=== PATIENT | female | born 1960 | race Caucasian/White ===

== ENCOUNTER 2017-07-15 07:43 | Day surgery (SDC) | END 2017-07-15 12:10 | disposition home or self-care (01) ==

== ENCOUNTER 2017-07-16 08:49 | Emergency (ER) | END 2017-07-16 16:02 | disposition home or self-care (01) ==

== ENCOUNTER 2017-09-30 07:25 | Observation (INO) | END 2017-10-03 15:01 | disposition home or self-care (01) ==

== ENCOUNTER 2017-10-07 14:22 | Outpatient (CLI) | END 2017-10-10 14:08 | disposition home or self-care (01) ==

== ENCOUNTER 2018-08-11 06:15 | Inpatient (IN) | payer OTHER ==
[~2018-08-11] VITALS: Ht 167.6 cm; Wt 98.0 kg
[2018-08-11] VITALS (29 sets, daily range): BP systolic 117–149; BP diastolic 64–92; PULSE 68–104; RESP 14–19; Ht 167.6 cm; Wt 98.0 kg
[~2018-08-11 06:15] MED LIST: ACET-141 PO; ASPI-903 PO; ATOR10TA65 PO; CALC500T91 PO; CLZP100T PO; ESCI20TA38 PO; HYDR-3601 PO; INSU100I33 SC; LIRA0.6P2 SQ; LORA10TA3 PO; LOSA50TA14 PO; LURA40TA PO; MTF1000T PO; NAPR-683 PO; TEMA30CA PO
[2018-08-11] MEDS ORDERED: CALC-74 PO (06:42)
[2018-08-11] MEDS ORDERED: ACET-141 PO (06:43)
[2018-08-11] MEDS ORDERED: ATOR10TA65 PO (06:44)
[2018-08-11] MEDS ORDERED: ASPI81TA52 PO (06:44)
[2018-08-11] MEDS ORDERED: CLZP100T PO (06:46)
[2018-08-11] MEDS ORDERED: INSU100I33 SC (06:47)
[2018-08-11] MEDS ORDERED: ESCI20TA PO (06:47)
[2018-08-11] MEDS ORDERED: LIRA0.6P2 SQ (06:48)
[2018-08-11] MEDS ORDERED: LORA10TA3 PO (06:49)
[2018-08-11] MEDS ORDERED: LURA40TA PO (06:49)
[2018-08-11] MEDS ORDERED: LOSA50TA14 PO (06:49)
[2018-08-11] MEDS ORDERED: METF100010 PO (06:50)
[2018-08-11] MEDS ORDERED: TEMA30CA PO (06:51)
[2018-08-11] MEDS ORDERED: NAPR-683 PO (06:51)
[2018-08-11] MEDS ORDERED: LIDOCAINE 2% (SDV) 5 ML INJ ONE (07:00)
[2018-08-11] MEDS ORDERED: POLYMYXIN/BACITRACIN 1L IRRIG ONE (07:41)
[2018-08-11] MEDS ORDERED: BACITRACIN 50000 UNITS INJ ONE (07:41)
[2018-08-11] MEDS ORDERED: POLYMYXIN B 500000 UNIT INJ ONE (07:43)
--- NOTE | 2018-08-11 07:52 | PREAC ---
Date/Time of Note Date/Time of Note DATE: 08/11/18 TIME: 07:50 Anesthesia Eval and Record Evaluation Time Pre-Procedure Interview DATE: 08/11/18 TIME: 07:50 Age 58 Sex female NPO: 8 hrs Preoperative diagnosis left knee osteoarthritis Planned procedure left total knee replacement Past Medical History Past Medical History: Includes Cardio: HTN Endo: Diabetes Pulm: Smoking Hx Musculoskeletal: Osteoarthritis GI: Morbid obesity Psych: Other (schizophrenia) Surgery & Anesthesia Issues No known issue Meds Anticoagulation: No Beta Crystal within 24 hr: No Reason Beta Crystal not given: Pt. not on B-Crystal Reported Medications Temazepam* (Temazepam*) 30 Mg Capsule, 30 MG PO HS PRN for INSOMNIA, CAP 08/11/18 Naproxen* (Naproxen*) 250 Mg Tablet, 250 MG PO BID PRN for PAIN AND/OR INFLAMMATION, TAB 08/11/18 Metformin Hcl* (Metformin Hcl*) 1,000 Mg Tablet, 1000 MG PO WITH BREAKFAST DINNE , #60 TAB 08/11/18 Lurasidone Hcl (LATUDA) 40 Mg Tablet, 40 MG PO DAILY, #30 TAB 08/11/18 Losartan Potassium* (Losartan Potassium*) 50 Mg Tablet, 50 MG PO DAILY, TAB 08/11/18 Loratadine* (Loratadine*) 10 Mg Tablet, 10 MG PO DAILY, #30 TAB 08/11/18 Liraglutide (Victoza 3-Hang) 0.6 Mg/0.1 Ml Pen.injctr, 1.8 MG SQ DAILY, SYR 08/11/18 Insulin Glargine,Hum.rec.anlog (Basaglar Kwikpen U-100) 100 Unit/1 Ml Insul n.pen, 34 UNIT SC QAM, EA 08/11/18 Escitalopram Oxalate* (Lexapro*) 20 Mg Tablet, 20 MG PO DAILY, #30 TAB 08/11/18 Clozapine* (Clozaril*) 100 Mg Tab, 600 MG PO QHS, TAB 08/11/18 Atorvastatin Calcium (Atorvastatin Calcium) 10 Mg Tablet, 10 MG PO QHS, #30 TAB 08/11/18 Aspirin (Low Dose Aspirin) 81 Mg Tablet.dr, 81 MG PO DAILY, #30 TAB 08/11/18 Acetaminophen* (Acetaminophen*) 500 MG Extra Strength Tablet, 1000 MG PO TID PRN for PAIN AND OR ELEVATED TEMP, TAB 08/11/18 Calcium Carbonate-Vit D3-Minerals (Calcium 600 + D + Minerals) 1 Each Tablet, 1 TAB PO DAILY, TAB 08/11/18 Naproxen* (Naproxen*) 250 Mg Tablet, 250 MG PO BID PRN for PAIN, TAB 07/15/17 Discontinued Reported Medications Lurasidone Hcl (LATUDA) 40 Mg Tablet, 40 MG PO DAILY, #30 TAB 09/30/17 Temazepam* (Temazepam*) 30 Mg Capsule, 30 MG PO HS PRN for INSOMNIA, CAP 07/15/17 Escitalopram Oxalate* (Escitalopram Oxalate*) 20 Mg Tablet, 20 MG PO DAILY, #30 TAB 07/15/17 Clozapine* (Clozaril*) 100 Mg Tab, 600 MG PO QHS, TAB 07/15/17 Acetaminophen* (Acetaminophen*) 500 MG Extra Strength Tablet, 1000 MG PO Q8 PRN for PAIN AND OR ELEVATED TEMP, TAB 07/15/17 Metformin* (Glucophage*) 1,000 Mg Tablet, 1000 MG PO BID, #60 TAB 07/15/17 Losartan Potassium* (Losartan Potassium*) 50 Mg Tablet, 50 MG PO DAILY, TAB 07/15/17 Calcium Carbonate (Izon-Cux-955) 500 Mg Tablet, 500 MG PO AC MEALS, TAB 07/15/17 Atorvastatin Calcium (Atorvastatin Calcium) 10 Mg Tablet, 10 MG PO QHS, #30 TAB 07/15/17 Aspirin* (Aspirin* Chew) 81 Mg Tab.chew, 81 MG PO DAILY, TAB.CHEW 07/15/17 Liraglutide (Victoza 3-Hang) 0.6 Mg/0.1 Ml Pen.injctr, 1.8 MG SQ DAILY, SYR 07/15/17 Loratadine* (Loratadine*) 10 Mg Tablet, 10 MG PO DAILY, #30 TAB 07/15/17 Insulin Glargine,Hum.rec.anlog (Basaglar Kwikpen U-100) 100 Unit/1 Ml Insu ln.pen, 34 UNIT SC QAM, EA 07/15/17 Discontinued Scripts Hydrocodone Bit-Acetaminophen (Hydrocodone Bit-APAP) 5-325MG Tablet, 1 TAB PO Q4H PRN for PAIN LEVEL 4-7, #40 TAB Prov:TOY ESTRADA 10/03/17 Meds reviewed: Yes Allergies Coded Allergies: No Known Allergy (Unverified , 08/11/18) Allergies Reviewed: Yes Labs/Studies Labs Reviewed: Reviewed by anesthesiologist test: N/A Studies: ECG, CXR Pre-procedure Exam Last vitals Vital Signs Date Temp Pulse Resp B/P (MAP) Pulse Ox O2 O2 Flow FiO2 Time Delivery Rate 08/11/18 98.1 78 18 120/75 98 Room Air 07:00 (90) Airway: Adequate mouth opening, Adequate thyromental dist Mallampati: Mallampati II Teeth: Normal Lung: Normal Heart: Normal ASA Physical Status ASA physical status: 3 Emergency: None Planned Anesthetic General/MAC: ETT Neuraxial: Spinal Planned Pain Management Single shot nerve block, Parenteral pain med Pre-operative Attestations Prior to commencing anesthesia and surgery, the patient was re-evaluated, there was verification of: *The patient's identity *The results of appropriate recent lab work and preoperative vital signs *The above evaluation not changing prior to induction *Anesthetic plan, risk benefits, alternative and complications discussed with patient/family; questions answered; patient/family understands, accepts and wishes to proceed. TAMAR JACKSON Aug 11, 2018 07:52
--- NOTE | 2018-08-11 08:03 | HPN ---
Date/Time of Note Date/Time of Note DATE: 08/11/18 TIME: 08:02 Interval H&P Admission Note Pt. seen H&P reviewed: No system changes LACEY TUCKER MD Aug 11, 2018 08:02
[2018-08-11] MEDS ORDERED: PROPOFOL 20 ML ONE (08:06)
[2018-08-11] MEDS ORDERED: MIDAZOLAM 1 MG/ML 2 ML INJ ONE (08:08)
[2018-08-11] MEDS ORDERED: EPINEPHrine 1 MG INJ ONE (08:12)
[2018-08-11] MEDS ORDERED: TRANEXAMIC ACID 1GM/100ML(PMX) 0 ML ONE (08:16)
[2018-08-11] MEDS ORDERED: TRANEXAMIC ACID 1GM/100ML(PMX) 100 ML ONE (08:18)
[2018-08-11] MEDS ORDERED: PHENYLephrine (100 MCG/ML) 5ML SYG ONE (08:18)
[2018-08-11] MEDS ORDERED: TRANEXAMIC ACID 1GM/100ML(PMX) 20 ML IV ONE (08:30)
[2018-08-11] MEDS ORDERED: DEXAMETHASONE 4 MG/ML 5 ML INJ ONE (09:58)
[2018-08-11] MEDS ORDERED: ONDANSETRON 4 MG INJ ONE (09:58)
[2018-08-11] MEDS ORDERED: BUPIVACAINE 0.5% (SDV) 30 ML INJ ONE (10:16)
[2018-08-11] MEDS ORDERED: NEOSTIGMINE 10 MG INJ ONE (10:23)
[2018-08-11] MEDS ORDERED: CEFAZOLIN 1 GM INJ ONE (10:23)
[2018-08-11] MEDS ORDERED: GLYCOPYRROLATE 0.4 MG INJ ONE (10:23)
--- NOTE | 2018-08-11 10:50 | OPR ---
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 The patient has failed nonoperative treatment and now presents for elective total knee replacement. Risks and benefits were discussed with the patient, risks including but not limited to infection, bleeding, blood clots, dislocation, fracture, knee stiffness, nerve damage, blood vessel damage, along with other medical, anesthetic and surgical complications were discussed. Informed consent was obtained. DESCRIPTION OF PROCEDURE: The patient's correct extremity was identified in the preoperative area. The patient was brought back to the operating room where a spinal anesthetic was placed followed by an adductor canal block. The correct extremity was then prepped and draped in the standard sterile manner. A timeout was performed. Esmarch was used to exsanguinate. The thigh tourniquet was inflated to 250 mmHg. I then made a standard midline incision for approaching the knee. I went through skin and subcutaneous tissue, made a medial parapatellar arthrotomy. Then, flexed the knee and introduced an intramedullary alignment guide. Distal femoral cut was made and then the extramedullary alignment guide was used to make the tibial cut. Flexion and extension gaps were checked. There were symmetric. The knee went from full extension to full flexion. I then turned my attention to the patella. I used an sije-obp-bim mill type cutting guide, cut the patellar to appropriate thickness and sized the patella. I then trialed the patella. The patella tracked well without any external pressure. I then made the peg holes for the femoral trial. Punched the tibia. I took out all trial components. Thoroughly irrigated the bony surfaces, dried them with a lap sponge. I then proceeded to cement the tibia, femur and patellar components. A trial insert was used till the cement hardened. After the cement hardened, I thoroughly irrigted the knee. The knee was well balanced. I then let down the tourniquet, obtained adequate hemostasis. I thoroughly irrigated the knee. I then impacted the appropriate all poly insert until it locked into place and I had full range of motion with just a jog of opening with varus and valgus stress. I then turned my attention to closure. I closed the medial parapatellar arthrotomy with interrupted #1 Vicryl, subcutaneous tissue was closed with 2-0 Vicryl, skin with pilar. Dry sterile dressings were applied. The patient had good perfusion to her foot with a 2+ dorsalis pedis pulse. She was then extubated and transported to recovery in stable condition. LACEY TUCKER MD Aug 11, 2018 10:50
[2018-08-11] MEDS ORDERED: ONDANSETRON 4 MG INJ IV PRN (11:00)
[2018-08-11] MEDS ORDERED: MAGNESIUM HYDROXIDE 30ML CUP PO PRN (11:00)
[2018-08-11] MEDS ORDERED: SENNA/DOCUSATE NA (8.6MG/50MG) TAB PO PRN (11:00)
[2018-08-11] MEDS ORDERED: METOCLOPRAMIDE 10 MG INJ IV PRN (11:00)
[2018-08-11] MEDS ORDERED: BISACODYL 10 MG SUPP PR PRN (11:00)
[2018-08-11] MEDS ORDERED: ZOLPIDEM 5 MG TAB PO PRN (11:00)
[2018-08-11] MEDS ORDERED: hydrALAzine 20 MG INJ IV PRN (11:00)
[2018-08-11] MEDS ORDERED: DOCUSATE SODIUM 100 MG CAP PO ONE (11:00)
[2018-08-11] MEDS ORDERED: LABETALOL HCL 20MG INJ IV PRN (11:00)
[2018-08-11] MEDS ORDERED: HYDROmorphONE 1 MG/5 ML IV SYRINGE IV PRN ×3 (11:00)
[2018-08-11] MEDS ORDERED: OXYCODONE/ACETAMINOPHEN (5/325) TAB PO PRN ×2 (11:00)
[2018-08-11] MEDS ORDERED: KETOROLAC 30 MG INJ IV PRN (11:00)
[2018-08-11] MEDS ORDERED: NA PHOSPHATE/BIPHOS 133 ML ENEMA PR PRN (11:00)
[2018-08-11] MEDS ORDERED: ALBUTEROL 0.083% (NEB) 2.5 MG/3 ML AMP HHN PRN (11:00)
[2018-08-11] MEDS ORDERED: EPHEDrine SULFATE 50 MG/5 ML SYG IV PRN (11:00)
[2018-08-11] MEDS ORDERED: MEPERIDINE 25 MG INJ IV PRN (11:00)
[2018-08-11] MEDS ORDERED: DIPHENHYDRAMINE 50 MG INJ IV PRN ×2 (11:00)
[2018-08-11] MEDS ORDERED: NALOXONE (0.4 MG/ML) INJ IV PRN (11:00)
[2018-08-11] MEDS ORDERED: NACL 0.9% 3 ML SYG IV SCH (11:00)
[2018-08-11] MEDS ORDERED: HYDROCODONE/APAP (10/325) TAB PO PRN (11:00)
[2018-08-11] MEDS ORDERED: FENTAnyl 50 MCG/ML VIAL IV PRN ×3 (11:00)
--- NOTE | 2018-08-11 11:00 | PAC ---
Date/Time of Note Date/Time of Note DATE: 08/11/18 TIME: 11:00 Post-Anesthesia Notes Post-Anesthesia Note Last documented vital signs Vital Signs Date Temp Pulse Resp B/P (MAP) Pulse Ox O2 O2 Flow FiO2 Time Delivery Rate 08/11/18 98.1 78 18 120/75 98 Room Air 1100 (90) Activity: WNL Respiratory function: WNL Cardiovascular function: WNL Mental status: Baseline Pain reasonably controlled: Yes Hydration appropriate: Yes Nausea/Vomiting absent: Yes TAMAR JACKSON Aug 11, 2018 11:00
[2018-08-11] MEDS ORDERED: CEFAZOLIN 2 GM/50 ML (PMX) 50 ML IVPB ONE (12:31)
[2018-08-11] MEDS: DOCUSATE SODIUM 100 MG CAP PO SCH (12:34)
[2018-08-11] MEDS: CEFAZOLIN 2 GM/50 ML (PMX) 50 ML IVPB SCH ×2 (12:35→21:50)
--- NOTE | 2018-08-11 13:20 | HP ---
Date/Time of Note Date/Time of Note DATE: 08/11/18 TIME: 13:18 Assessment/Plan VTE Prophylaxis Risk score (from Ns)>0 risk: 6 SCD applied (from Ns): Yes Pharmacological prophylaxis: NA/contraindicated Pharm contraindication: surgical contra Lines/Catheters IV Catheter Type (from Nrs): Peripheral IV Assessment/Plan Assessment/Plan -Left knee osteoarthritis, status post left total knee replacement by Dr. Ayoub. Continue postoperative antibiotics, management, physical therapy. -Diabetes mellitus type 2, continue metformin, Lantus and NovoLog. -Hypertension -Hyperlipidemia -Tobacco dependence -Obesity with BMI of 34.9. Further recommendations based on clinical course. Plan of care discussed with Dr. Mix. Results 24hrs Laboratory Tests Test 08/11/18 07:03 Bedside Glucose 189 HPI/ROS Admit Date/Time Admit Date/Time Aug 11, 2018 at 06:15 Hx of Present Illness The patient is a 58-year-old female with history of diabetes, hypertension, hyperlipidemia, history of hernia repair in June 2017 with subsequent wound dehiscence,history of schizophrenia, patient has osteoarthritis of the left knee which got progressively worse and failed outpatient management. Patient was brought to the hospital and underwent left total knee replacement. Postoperatively patient experiencing pain and patient will be admitted for further evaluation and management. ROS 12 point review of system is negative except what mentioned in HPI PMH/Family/Social Past Medical History Medical History: diabetes, high cholesterol, hypertension Medications Current Medications Sodium Chloride 1,000 ml @ 80 mls/hr [id number] IV ; Start 08/11/18 at 10:50 IV Flush (NS 3 ml) 3 ml PER PROTOCOL IV ; Start 08/11/18 at 11:00; Stop 08/11/18 at 18:00 Zolpidem Tartrate (Ambien) 5 mg HS PRN PO .INSOMNIA; Start 08/11/18 at 11:00 Ondansetron HCl (Zofran Inj) 4 mg Q4H PRN IV NAUSEA/VOMITING; Start 08/12/18 at 11:00 Cefazolin Sodium/ Dextrose 50 ml @ 100 mls/hr Q8H IVPB Last administered on 08/11/18at 12:35; Admin Dose 100 MLS/HR; Start 08/11/18 at 18:00; Stop 08/12/18 at 10:29 Pantoprazole (Protonix Tab) 40 mg DAILY@06 PO ; Start 08/13/18 at 06:00 Docusate Sodium (Colace) 200 mg BID PO Last administered on 08/11/18at 12:34; Admin Dose 100 MG; Start 08/12/18 at 09:00; Stop 08/15/18 at 08:59 Simethicone (Mylicon) 80 mg TID PRN PO .GAS; Start 08/11/18 at 11:00 Senna/Docusate Sodium (Senokot-S) 2 tab BID PRN PO .CONSTIPATION; Start 08/11/18 at 11:00 Magnesium Hydroxide (Milk Of Mag) 30 ml HS PRN PO .CONSTIPATION; Start 08/11/18 at 11:00 Bisacodyl (Dulcolax Supp) 10 mg DAILY PRN [place] .CONSTIPATION; Start 08/11/18 at 11:00 Sodium Biphosphate/ Sodium Phosphate (Fleet Enema) 133 ml DAILY PRN [place] .CONSTIPATION; Start 08/11/18 at 11:00 Diphenhydramine HCl (Benadryl) 25 mg Q4H PRN IV .ITCHING; Start 08/11/18 at 11:00 Naloxone HCl (Narcan) 0.2 mg Q2M PRN IV .RESP RATE; Start 08/11/18 at 11:00 Enoxaparin Sodium (Lovenox) 30 mg Q12 SC ; Start 08/12/18 at 09:00 Acetaminophen/ Hydrocodone Bitart ([place] (10/325)) 1 tab Q4H PRN PO MODERATE PAIN LEVEL 4-6; Start 08/11/18 at 11:00 Acetaminophen/ Hydrocodone Bitart ([place] (10/325)) 2 tab Q4H PRN PO PAIN LEVEL 6-10; Start 08/11/18 at 11:00 Morphine Sulfate (morphine) 2 mg Q4H PRN IV SEVERE PAIN LEVEL 7-10; Start 08/11/18 at 11:00 Hydromorphone HCl (Dilaudid) 0.2 mg PACU PRN IV MILD PAIN 1-3; Start 08/11/18 at 11:00; Stop 08/11/18 at 18:00 Hydromorphone HCl (Dilaudid) 0.4 mg PACU PRN IV MOD PAIN 4-6 Last administered on 08/11/18at 12:43; Admin Dose 0.4 MG; Start 08/11/18 at 11:00; Stop 08/11/18 at 18:00 Hydromorphone HCl (Dilaudid) 0.6 mg PACU PRN IV SEVERE PAIN 7-10 Last administered on 08/11/18at 11:48; Admin Dose 0.6 MG; Start 08/11/18 at 11:00; Stop 08/11/18 at 18:00 Fentanyl (Sublimaze) 25 mcg PACU ORDER PRN IV MILD PAIN 1-3; Start 08/11/18 at 11:00; Stop 08/11/18 at 18:00 Fentanyl (Sublimaze) 50 mcg PACU ORDER PRN IV MOD PAIN 4-6; Start 08/11/18 at 11:00; Stop 08/11/18 at 18:00 Fentanyl (Sublimaze) 75 mcg PACU ORDER PRN IV SEVERE PAIN 7-10; Start 08/11/18 at 11:00; Stop 08/11/18 at 18:00 Ketorolac Tromethamine (Toradol) 30 mg PACU ORDER PRN IV FOR PAIN AFTER IV NARCOTIC MED; Start 08/11/18 at 11:00; Stop 08/11/18 at 18:00 Oxycodone/ Acetaminophen (Percocet (5/ 325)) 1 tab PACU ORDER PRN PO .PAIN 1-5; Start 08/11/18 at 11:00; Stop 08/11/18 at 18:00 Oxycodone/ Acetaminophen (Percocet (5/ 325)) 2 tab PACU ORDER PRN PO .PAIN 6-10; Start 08/11/18 at 11:00; Stop 08/11/18 at 18:00 Ondansetron HCl (Zofran Inj) 4 mg PACU ORDER PRN IV NAUSEA/VOMITING; Start 08/11/18 at 11:00; Stop 08/11/18 at 18:00 Metoclopramide HCl (Reglan) 10 mg PACU ORDER PRN IV NAUSEA/VOMITING; Start 08/11/18 at 11:00; Stop 08/11/18 at 18:00 Labetalol HCl (Labetalol) 5 mg PACU ORDER PRN IV HIGH BLOOD PRESSURE; Start 08/11/18 at 11:00; Stop 08/11/18 at 18:00 Hydralazine HCl (Apresoline) 5 mg PACU ORDER PRN IV HIGH BLOOD PRESSURE; Start 08/11/18 at 11:00; Stop 08/11/18 at 18:00 Ephedrine Sulfate 5 mg PACU ORDER PRN IV BLOOD PRESSURE SUPPORT; Start 08/11/18 at 11:00; Stop 08/11/18 at 18:00 Albuterol (Proventil 0.083% (Neb)) 2.5 mg PACU ORDER PRN HHN .WHEEZING; Start 08/11/18 at 11:00; Stop 08/11/18 at 18:00 Meperidine HCl (Demerol) 25 mg PACU ORDER PRN IV .RIGORS; Start 08/11/18 at 11:00; Stop 08/11/18 at 18:00 Diphenhydramine HCl (Benadryl) 25 mg PACU ORDER PRN IV .PRURITUS; Start 08/11/18 at 11:00; Stop 08/11/18 at 18:00 Coded Allergies: No Known Allergy (Unverified , 08/11/18) Past Surgical History Past Surgical Hx: other (Status post hernia repair) Social History Alcohol Use: none Smoking Status: Current every day smoker (Smokes about 10 cigarettes/day smoked more than 10 years) Drug Use: none Exam/Review of Systems Vital Signs Vitals Vital Signs Date Temp Pulse Resp B/P (MAP) Pulse Ox O2 O2 Flow FiO2 Time Delivery Rate 08/11/18 76 19 144/86 98 Nasal 2.0 12:50 (105) Cannula 08/11/18 99.8 12:15 Exam Constitutional: alert, oriented Head: normocephalic Neck: supple Respiratory: clear to auscultation Cardiovascular: regular rate and rhythm Gastrointestinal: soft, non-tender Musculoskeletal: other (Status post left total knee replacement) Extremities: normal pulses Neurological: nl mental status Skin: TYO Brown Aug 11, 2018 13:20
[2018-08-11] MEDS: HYDROCODONE/APAP (10/325) TAB PO PRN ×2 (14:13→20:45)
[2018-08-11] MEDS: SOD CHLORIDE 0.9% 1,000 ML IV SCH ×2 (14:14→23:20)
[2018-08-11] MEDS: morphine 2 MG INJ IV PRN (16:15)
[2018-08-11] MEDS: ACCU-CHEK XX SCH ×2 (18:03→22:29)
[2018-08-11] MEDS: metFORMIN 500 MG TAB PO SCH (18:06)
[2018-08-11] MEDS: INSULIN ASPART [NOVOLOG] 3 ML PEN SC SCH ×3 (18:08→20:56)
[2018-08-11] MEDS: CLOZAPINE 100 MG TABLET PO SCH (20:56)
[2018-08-11] MEDS: INSULIN GLARGINE [LANTus] (100 UNITS/ML) SYG SC SCH (20:56)
[2018-08-12 00:10] VITALS: BP 114/59; PULSE 95
[2018-08-12] MEDS: HYDROCODONE/APAP (10/325) TAB PO PRN ×5 (00:55→23:48)
[2018-08-12] MEDS: ACCU-CHEK XX SCH ×5 (02:00→21:00)
[2018-08-12] MEDS: SOD CHLORIDE 0.9% 1,000 ML IV SCH ×2 (03:30→23:54)
[2018-08-12] MEDS: morphine 2 MG INJ IV PRN ×4 (05:54→20:46)
[2018-08-12] MEDS ORDERED: CEFAZOLIN 2 GM/50 ML (PMX) 50 ML IVPB SCH (06:00)
[2018-08-12 07:57] VITALS: BP 118/67; PULSE 77; RESP 19
[2018-08-12] MEDS: INSULIN ASPART [NOVOLOG] 3 ML PEN SC SCH ×7 (09:00→20:43)
--- NOTE | 2018-08-12 09:10 | PN ---
Date/Time of Note Date/Time of Note DATE: 08/12/18 TIME: 09:09 Assessment/Plan Lines/Catheters IV Catheter Type (from Nrsg): Peripheral IV Assessment/Plan Assessment/Plan POD 1 s/p Left TKA Doing well Pain control OOB with CPM Lovenox, SCD's for DVT prophylaxis D/c Sin Encourage IS Discharge planning Home probably Tuesday. Subjective 24 Hr Interval Summary Complaining of pain. Doing CPM currently. Exam/Review of Systems Vital Signs Vitals Vital Signs Date Temp Pulse Resp B/P (MAP) Pulse Ox O2 O2 Flow FiO2 Time Delivery Rate 08/12/18 98.9 77 19 118/67 97 07:57 (84) 08/11/18 Nasal 2.0 13:10 Cannula Intake and Output 08/11/18 08/11/18 08/12/18 1515:00 23:00 07:00 IntakeIntake Total 1506 ml 970 ml 880 ml OutputOutput Total 320 ml 2400 ml BalanceBalance 1186 ml -1430 ml 880 ml Exam Free Text/Dictation Left LE Dressing c/d/i Calf and thigh soft and non tender Foot warm and well perfused Intact motor and sensory function in foot Results Result Diagram: 08/12/18 0441 08/12/18 0441 LACEY TUCKER MD Aug 12, 2018 09:10
[2018-08-12] MEDS: metFORMIN 500 MG TAB PO SCH ×2 (09:15→18:01)
[2018-08-12] MEDS: ESCITALOPRAM 10 MG TAB PO SCH (09:15)
[2018-08-12] MEDS: LOSARTAN 50 MG TAB PO SCH (09:17)
[2018-08-12] MEDS: ENOXAPARIN 30 MG/0.3 ML SYG SC SCH ×2 (09:25→20:42)
[2018-08-12] MEDS ORDERED: ONDANSETRON 4 MG INJ IV PRN (11:00)
--- NOTE | 2018-08-12 16:24 | PN ---
Date/Time of Note Date/Time of Note DATE: 08/12/18 TIME: 16:24 Assessment/Plan VTE Prophylaxis Risk score (from Nsg)>0 risk: 5 SCD applied (from Nsg): Yes Lines/Catheters IV Catheter Type (from Nrsg): Saline Lock Urinary Cath still in place: Yes Reason Cath still needed: urinary retention Assessment/Plan Assessment/Plan -Left knee osteoarthritis, status post left total knee replacement by Dr. Ayoub. Continue postoperative antibiotics, management, physical therapy. -Diabetes mellitus type 2, continue metformin, Lantus and NovoLog. -Hypertension -Hyperlipidemia -Tobacco dependence -Obesity with BMI of 34.9. Further recommendations based on clinical course. Plan of care discussed with Dr. Mix. Result Diagram: 08/12/18 0441 08/12/18 0441 Results 24hrs Laboratory Tests Test 08/11/18 17:52 08/11/18 20:47 08/12/18 02:22 08/12/18 04:41 Bedside Glucose 208 194 168 White Blood Count 13.3 #H Red Blood Count 4.08 L Hemoglobin 12.4 Hematocrit 36.9 L Mean Corpuscular 90.4 Volume Mean Corpuscular 30.4 Hemoglobin Mean Corpuscular 33.6 Hemoglobin Concent Red Cell 13.0 Distribution Width Platelet Count 243 Mean Platelet 9.5 Volume Immature 0.600 H Granulocytes % Neutrophils % 77.7 H Lymphocytes % 14.1 L Monocytes % 7.4 Eosinophils % 0.0 Basophils % 0.2 Nucleated Red 0.0 Blood Cells % Immature 0.080 H Granulocytes # Neutrophils # 10.3 H Lymphocytes # 1.9 Monocytes # 1.0 H Eosinophils # 0.0 Basophils # 0.0 Nucleated Red 0.0 Blood Cells # Sodium Level 142 Potassium Level 4.1 Chloride Level 106 Carbon Dioxide 29 Level Anion Gap 7 Blood Urea 13 Nitrogen Creatinine 0.52 Est Glomerular > 60 Filtrat Rate mL/min Glucose Level 142 Calcium Level 9.5 Test 08/12/18 07:02 08/12/18 08:58 08/12/18 12:54 Lab Scanned Report REFERENCE LAB Bedside Glucose 128 117 Exam/Review of Systems Exam Vitals Vital Signs Date Temp Pulse Resp B/P (MAP) Pulse Ox O2 O2 Flow FiO2 Time Delivery Rate 08/12/18 98.9 77 19 118/67 97 07:57 (84) 08/11/18 Nasal 2.0 13:10 Cannula Intake and Output 08/11/18 08/11/18 08/12/18 1515:00 23:00 07:00 IntakeIntake Total 1506 ml 970 ml 880 ml OutputOutput Total 320 ml 2400 ml BalanceBalance 1186 ml -1430 ml 880 ml Results Results 24hrs Laboratory Tests Test 08/11/18 17:52 08/11/18 20:47 08/12/18 02:22 08/12/18 04:41 Bedside Glucose 208 194 168 White Blood Count 13.3 #H Red Blood Count 4.08 L Hemoglobin 12.4 Hematocrit 36.9 L Mean Corpuscular 90.4 Volume Mean Corpuscular 30.4 Hemoglobin Mean Corpuscular 33.6 Hemoglobin Concent Red Cell 13.0 Distribution Width Platelet Count 243 Mean Platelet 9.5 Volume Immature 0.600 H Granulocytes % Neutrophils % 77.7 H Lymphocytes % 14.1 L Monocytes % 7.4 Eosinophils % 0.0 Basophils % 0.2 Nucleated Red 0.0 Blood Cells % Immature 0.080 H Granulocytes # Neutrophils # 10.3 H Lymphocytes # 1.9 Monocytes # 1.0 H Eosinophils # 0.0 Basophils # 0.0 Nucleated Red 0.0 Blood Cells # Sodium Level 142 Potassium Level 4.1 Chloride Level 106 Carbon Dioxide 29 Level Anion Gap 7 Blood Urea 13 Nitrogen Creatinine 0.52 Est Glomerular > 60 Filtrat Rate mL/min Glucose Level 142 Calcium Level 9.5 Test 08/12/18 07:02 08/12/18 08:58 08/12/18 12:54 Lab Scanned Report REFERENCE LAB Bedside Glucose 128 117 Medications Medication Current Medications Sodium Chloride 1,000 ml @ 80 mls/hr [id number] IV Last administered on 08/12/18at 03:30; Admin Dose 80 MLS/HR; Start 08/11/18 at 10:50 Zolpidem Tartrate (Ambien) 5 mg HS PRN PO .INSOMNIA; Start 08/11/18 at 11:00 Ondansetron HCl (Zofran Inj) 4 mg Q4H PRN IV NAUSEA/VOMITING; Start 08/12/18 at 11:00 Pantoprazole (Protonix Tab) 40 mg DAILY@06 PO ; Start 08/13/18 at 06:00 Docusate Sodium (Colace) 200 mg BID PO Last administered on 08/11/18at 12:34; Admin Dose 100 MG; Start 08/12/18 at 09:00; Stop 08/15/18 at 08:59 Simethicone (Mylicon) 80 mg TID PRN PO .GAS; Start 08/11/18 at 11:00 Senna/Docusate Sodium (Senokot-S) 2 tab BID PRN PO .CONSTIPATION; Start 08/11/18 at 11:00 Magnesium Hydroxide (Milk Of Mag) 30 ml HS PRN PO .CONSTIPATION; Start 08/11/18 at 11:00 Bisacodyl (Dulcolax Supp) 10 mg DAILY PRN [place] .CONSTIPATION; Start 08/11/18 at 11:00 Sodium Biphosphate/ Sodium Phosphate (Fleet Enema) 133 ml DAILY PRN [place] .CONSTIPATION; Start 08/11/18 at 11:00 Diphenhydramine HCl (Benadryl) 25 mg Q4H PRN IV .ITCHING; Start 08/11/18 at 11:00 Naloxone HCl (Narcan) 0.2 mg Q2M PRN IV .RESP RATE; Start 08/11/18 at 11:00 Enoxaparin Sodium (Lovenox) 30 mg Q12 SC Last administered on 08/12/18at 09:25; Admin Dose 30 MG; Start 08/12/18 at 09:00 Acetaminophen/ Hydrocodone Bitart ([place] (10/325)) 1 tab Q4H PRN PO MODERATE PAIN LEVEL 4-6; Start 08/11/18 at 11:00 Acetaminophen/ Hydrocodone Bitart ([place] (10/325)) 2 tab Q4H PRN PO PAIN LEVEL 6-10 Last administered on 08/12/18at 12:09; Admin Dose 2 TAB; Start 08/11/18 at 11:00 Morphine Sulfate (morphine) 2 mg Q4H PRN IV SEVERE PAIN LEVEL 7-10 Last administered on 08/12/18at 10:28; Admin Dose 2 MG; Start 08/11/18 at 11:00 Clozapine (Clozaril) 600 mg QHS PO ; Start 08/11/18 at 21:00 Escitalopram Oxalate (Lexapro) 20 mg DAILY PO Last administered on 08/12/18at 09:15; Admin Dose 20 MG; Start 08/12/18 at 09:00 Losartan Potassium (Cozaar) 50 mg DAILY PO Last administered on 08/12/18 09:17; Admin Dose 50 MG; Start 08/12/18 at 09:00 Metformin HCl (Glucophage) 1,000 mg WITH BREAKFAST DINNE PO Last administered on 08/12/18 09:15; Admin Dose 1,000 MG; Start 08/11/18 at 17:55 Diagnostic Test (Pha) (Accu-Chek) 1 ea AC MEALS AND BEDTIME XX Last administered on 08/12/18 13:00; Admin Dose 1 EA; Start 08/11/18 at 17:25 Diagnostic Test (Pha) (Accu-Chek) 1 ea 02 XX ; Start 08/12/18 at 02:00 Insulin Glargine (Lantus) 20 units DAILY@2000 SC Last administered on 08/11/18 20:56; Admin Dose 20 UNITS; Start 08/11/18 at 20:00 Insulin Aspart (Novolog Insulin Pen) 7 unit WITH MEALS SC Last administered on 08/12/18 13:09; Admin Dose 7 UNIT; Start 08/11/18 at 17:55 Insulin Aspart (Novolog Insulin Pen) NOVOLOG *MILD* ALGORITHM WITH MEALS BEDTIME SC Last administered on 08/11/18 20:56; Admin Dose 1 UNIT; Start 08/11/18 at 17:55 NABIL ANAND Aug 12, 2018 16:24
[2018-08-12 16:27] VITALS: BP 125/77; RESP 18
[2018-08-12] MEDS: DOCUSATE SODIUM 100 MG CAP PO SCH (20:39)
[2018-08-12 20:43] VITALS: BP 132/85; PULSE 74; RESP 20
[2018-08-12] MEDS: INSULIN GLARGINE [LANTus] (100 UNITS/ML) SYG SC SCH (20:44)
[2018-08-12] MEDS: CLOZAPINE 100 MG TABLET PO SCH (21:00)
[2018-08-13] MEDS: morphine 2 MG INJ IV PRN ×2 (01:23→05:34)
[2018-08-13] MEDS: ACCU-CHEK XX SCH ×5 (02:00→21:16)
[2018-08-13 02:12] VITALS: BP 138/63; PULSE 77; RESP 20
[2018-08-13] MEDS: HYDROCODONE/APAP (10/325) TAB PO PRN ×4 (04:09→20:15)
[2018-08-13] MEDS: PANTOPRAZOLE (EC) 40 MG TAB PO SCH (05:35)
[2018-08-13 07:59] VITALS: BP 128/75; PULSE 87; RESP 18
[2018-08-13] MEDS: DOCUSATE SODIUM 100 MG CAP PO SCH ×2 (09:05→20:11)
[2018-08-13] MEDS: ESCITALOPRAM 10 MG TAB PO SCH (09:06)
[2018-08-13] MEDS: LOSARTAN 50 MG TAB PO SCH (09:07)
[2018-08-13] MEDS: ENOXAPARIN 30 MG/0.3 ML SYG SC SCH ×2 (09:11→20:13)
[2018-08-13] MEDS: INSULIN ASPART [NOVOLOG] 3 ML PEN SC SCH ×8 (09:15→20:10)
[2018-08-13] MEDS: metFORMIN 500 MG TAB PO SCH ×2 (09:15→17:59)
[2018-08-13] MEDS: SOD CHLORIDE 0.9% 1,000 ML IV SCH (12:50)
--- NOTE | 2018-08-13 14:04 | PN ---
Date/Time of Note Date/Time of Note DATE: 08/13/18 TIME: 14:02 Assessment/Plan VTE Prophylaxis Risk score (from Ns)>0 risk: 8 SCD applied (from [facility] [place]): Yes SCD contraindicated: other Pharmacological prophylaxis: other Pharm contraindication: other Lines/Catheters IV Catheter Type (from [facility] Saline Lock Urinary Cath still in place: No Assessment/Plan Assessment/Plan -Left knee osteoarthritis, status post left total knee replacement by Dr. Ayoub. Continue postoperative antibiotics, management, physical therapy. -Diabetes mellitus type 2, continue metformin, Lantus and NovoLog. -Hypertension -Hyperlipidemia -Tobacco dependence -Obesity with BMI of 34.9. Further recommendations based on clinical course. Plan of care discussed with Dr. Mix. Result Diagram: 08/13/1843208/13/183 Results 24hrs Laboratory Tests Test 08/12/18 17:58 08/12/18 20:37 08/13/18 01:26 08/13/18 04:33 Bedside Glucose 134 191 141 White Blood Count 10.7 Red Blood Count 4.15 L Hemoglobin 12.6 Hematocrit 37.8 Mean Corpuscular 91.1 Volume Mean Corpuscular 30.4 Hemoglobin Mean Corpuscular 33.3 Hemoglobin Concent Red Cell 13.0 Distribution Width Platelet Count 231 Mean Platelet Volume 9.6 Immature 0.500 H Granulocytes % Neutrophils % 70.8 Lymphocytes % 21.7 Monocytes % 6.8 Eosinophils % 0.0 Basophils % 0.2 Nucleated Red Blood 0.0 Cells % Immature 0.050 H Granulocytes # Neutrophils # 7.6 H Lymphocytes # 2.3 Monocytes # 0.7 Eosinophils # 0.0 Basophils # 0.0 Nucleated Red Blood 0.0 Cells # Sodium Level 141 Potassium Level 4.1 Chloride Level 103 Carbon Dioxide Level 33 H Anion Gap 5 Blood Urea Nitrogen 14 Creatinine 0.53 Est Glomerular > 60 Filtrat Rate mL/min Glucose Level 140 Calcium Level 9.3 Test 08/13/18 08:40 08/13/18 12:37 Bedside Glucose 145 117 Subjective 24 Hr Interval Summary Constitutional: improved Eyes: no complaints ENT: no complaints Respiratory: no complaints Cardiovascular: no complaints Gastrointestinal: no complaints Genitourinary: no complaints Musculoskeletal: bone/joint pain, restricted range of motion Skin: no complaints Neurologic: no complaints Endocrine: no complaints Lymphatic: no complaints Psychological: nl mood/affect Immunologic: no complaints Exam/Review of Systems Exam Vitals Vital Signs Date Temp Pulse Resp B/P (MAP) Pulse Ox O2 O2 Flow FiO2 Time Delivery Rate 08/13/18 99.1 87 18 128/75 92 07:59 (92) 08/11/18 Nasal 2.0 13:10 Cannula Intake and Output 08/12/18 08/12/18 08/13/18 1515:00 23:00 07:00 IntakeIntake Total 920 ml 200 ml OutputOutput Total 2350 ml 500 ml BalanceBalance -1430 ml -300 ml Constitutional: alert, oriented, well developed Psych: nl mood/affect Head: normocephalic Eyes: EOMI, nl lids, nl sclera ENMT: nl external ears & nose Neck: non-tender Respiratory: clear to auscultation Cardiovascular: nl pulses, other (s1s2) Gastrointestinal: soft, non-tender Musculoskeletal: joint tenderness, range of motion, other (Left KNEE- DDI) Extremities: normal pulses Neurological: nl mental status, nl speech Skin: nl turgor Lymph: nontender Results Results 24hrs Laboratory Tests Test 08/12/18 17:58 08/12/18 20:37 08/13/18 01:26 08/13/18 04:33 Bedside Glucose 134 191 141 White Blood Count 10.7 Red Blood Count 4.15 L Hemoglobin 12.6 Hematocrit 37.8 Mean Corpuscular 91.1 Volume Mean Corpuscular 30.4 Hemoglobin Mean Corpuscular 33.3 Hemoglobin Concent Red Cell 13.0 Distribution Width Platelet Count 231 Mean Platelet Volume 9.6 Immature 0.500 H Granulocytes % Neutrophils % 70.8 Lymphocytes % 21.7 Monocytes % 6.8 Eosinophils % 0.0 Basophils % 0.2 Nucleated Red Blood 0.0 Cells % Immature 0.050 H Granulocytes # Neutrophils # 7.6 H Lymphocytes # 2.3 Monocytes # 0.7 Eosinophils # 0.0 Basophils # 0.0 Nucleated Red Blood 0.0 Cells # Sodium Level 141 Potassium Level 4.1 Chloride Level 103 Carbon Dioxide Level 33 H Anion Gap 5 Blood Urea Nitrogen 14 Creatinine 0.53 Est Glomerular > 60 Filtrat Rate mL/min Glucose Level 140 Calcium Level 9.3 Test 08/13/18 08:40 08/13/18 12:37 Bedside Glucose 145 117 Medications Medication Current Medications Sodium Chloride 1,000 ml @ 80 mls/hr [id number] IV Last administered on 08/12/18at 03:30; Admin Dose 80 MLS/HR; Start 08/11/18 at 10:50 Zolpidem Tartrate (Ambien) 5 mg HS PRN PO .INSOMNIA; Start 08/11/18 at 11:00 Ondansetron HCl (Zofran Inj) 4 mg Q4H PRN IV NAUSEA/VOMITING; Start 08/12/18 at 11:00 Pantoprazole (Protonix Tab) 40 mg DAILY@06 PO Last administered on 08/13/18at 05:35; Admin Dose 40 MG; Start 08/13/18 at 06:00 Docusate Sodium (Colace) 200 mg BID PO Last administered on 08/13/18at 09:05; Admin Dose 200 MG; Start 08/12/18 at 09:00; Stop 08/15/18 at 08:59 Simethicone (Mylicon) 80 mg TID PRN PO .GAS; Start 08/11/18 at 11:00 Senna/Docusate Sodium (Senokot-S) 2 tab BID PRN PO .CONSTIPATION; Start 08/11/18 at 11:00 Magnesium Hydroxide (Milk Of Mag) 30 ml HS PRN PO .CONSTIPATION; Start 08/11/18 at 11:00 Bisacodyl (Dulcolax Supp) 10 mg DAILY PRN [place] .CONSTIPATION; Start 08/11/18 at 11:00 Sodium Biphosphate/ Sodium Phosphate (Fleet Enema) 133 ml DAILY PRN MA .CONSTIPATION; Start 08/11/18 at 11:00 Diphenhydramine HCl (Benadryl) 25 mg Q4H PRN IV .ITCHING; Start 08/11/18 at 1 1:00 Naloxone HCl (Narcan) 0.2 mg Q2M PRN IV .RESP RATE; Start 08/11/18 at 11:00 Enoxaparin Sodium (Lovenox) 30 mg Q12 SC Last administered on 08/13/18at 09:11; Admin Dose 30 MG; Start 08/12/18 at 09:00 Acetaminophen/ Hydrocodone Bitart ([place] (10/325)) 1 tab Q4H PRN PO MODERATE PAIN LEVEL 4-6; Start 08/11/18 at 11:00 Acetaminophen/ Hydrocodone Bitart ([place] (10/)) 2 tab Q4H PRN PO PAIN LEVEL 6-10 Last administered on 08/13/18 09:06; Admin Dose 2 TAB; Start 08/11/18 at 11:00 Morphine Sulfate (morphine) 2 mg Q4H PRN IV SEVERE PAIN LEVEL 7-10 Last administered on 08/13/18 05:34; Admin Dose 2 MG; Start 08/11/18 at 11:00 Clozapine (Clozaril) 600 mg QHS PO ; Start 08/11/18 at 21:00 Escitalopram Oxalate (Lexapro) 20 mg DAILY PO Last administered on 08/13/18 09:06; Admin Dose 20 MG; Start 08/12/18 at 09:00 Losartan Potassium (Cozaar) 50 mg DAILY PO Last administered on 08/13/18 09:0 7; Admin Dose 50 MG; Start 08/12/18 at 09:00 Metformin HCl (Glucophage) 1,000 mg WITH BREAKFAST DINNE PO Last administered on 08/13/18 09:15; Admin Dose 1,000 MG; Start 08/11/18 at 17:55 Diagnostic Test (Pha) (Accu-Chek) 1 ea AC MEALS AND BEDTIME XX Last administered on 08/13/18 12:55; Admin Dose 1 EA; Start 08/11/18 at 17:25 Diagnostic Test (Pha) (Accu-Chek) 1 ea 02 XX ; Start 08/12/18 at 02:00 Insulin Glargine (Lantus) 20 units DAILY@2000 SC Last administered on 08/12/18 20:44; Admin Dose 20 UNITS; Start 08/11/18 at 20:00 Insulin Aspart (Novolog Insulin Pen) 7 unit WITH MEALS SC Last administered on 08/13/18 13:13; Admin Dose 7 UNIT; Start 08/11/18 at 17:55 Insulin Aspart (Novolog Insulin Pen) NOVOLOG *MILD* ALGORITHM WITH MEALS BEDTIME SC Last administered on 08/13/18 09:16; Admin Dose 1 UNIT; Start 08/11/18 at 17:55 NABIL ANAND Aug 13, 2018 14:04
[2018-08-13 14:29] VITALS: BP 125/69; PULSE 84; RESP 18
[2018-08-13 19:33] VITALS: BP 131/75; PULSE 66; RESP 16
[2018-08-13] MEDS: INSULIN GLARGINE [LANTus] (100 UNITS/ML) SYG SC SCH (20:13)
[2018-08-13] MEDS: CLOZAPINE 100 MG TABLET PO SCH (21:00)
[2018-08-14] MEDS: SOD CHLORIDE 0.9% 1,000 ML IV SCH (01:20)
[2018-08-14] MEDS: HYDROCODONE/APAP (10/325) TAB PO PRN ×4 (01:26→20:21)
[2018-08-14] MEDS: ACCU-CHEK XX SCH ×6 (01:32→20:26)
[2018-08-14 01:51] VITALS: BP 140/75; PULSE 78; RESP 16
[2018-08-14] MEDS: PANTOPRAZOLE (EC) 40 MG TAB PO SCH (05:38)
[2018-08-14 08:30] VITALS: BP 110/67; PULSE 72; RESP 18
[2018-08-14] MEDS: metFORMIN 500 MG TAB PO SCH ×2 (08:47→18:13)
[2018-08-14] MEDS: INSULIN ASPART [NOVOLOG] 3 ML PEN SC SCH ×7 (08:48→20:25)
[2018-08-14] MEDS: LOSARTAN 50 MG TAB PO SCH (08:49)
[2018-08-14] MEDS: DOCUSATE SODIUM 100 MG CAP PO SCH ×2 (08:49→20:20)
[2018-08-14] MEDS: ESCITALOPRAM 10 MG TAB PO SCH (08:49)
[2018-08-14] MEDS: ENOXAPARIN 30 MG/0.3 ML SYG SC SCH ×2 (08:50→20:30)
--- NOTE | 2018-08-14 12:03 | PN ---
Date/Time of Note Date/Time of Note DATE: 08/14/18 TIME: 11:59 Assessment/Plan VTE Prophylaxis Risk score (from Nsg)>0 risk: 8 SCD applied (from Nsg): Yes Pharmacological prophylaxis: LMWH Lines/Catheters IV Catheter Type (from Nrsg): Saline Lock Urinary Cath still in place: No Assessment/Plan Hospital Course Patient has slow progress with PT due to pain continue current care and man agement physical therapy patient, patient lives alone with no family members to help might benefit from acute rehab versus [facility] facility for short- term management and PT. Assessment/Plan -Left knee osteoarthritis, status post left total knee replacement by Dr. Esthela hamilton. Continue physical therapy. Lovenox for 2 weeks. -Diabetes mellitus type 2, continue metformin, Lantus and NovoLog. -Hypertension -Hyperlipidemia -Tobacco dependence -Obesity with BMI of 34.9. Further recommendations based on clinical course. Plan of care discussed with Dr. Mix. Result Diagram: 08/14/18 0432 08/14/18 0432 Results 24hrs Laboratory Tests Test 08/13/18 12:37 08/13/18 17:43 08/13/18 20:09 08/14/18 04:32 Bedside Glucose 117 174 177 White Blood Count 9.7 Red Blood Count 4.02 L Hemoglobin 12.3 Hematocrit 36.6 L Mean Corpuscular 91.0 Volume Mean Corpuscular 30.6 Hemoglobin Mean Corpuscular 33.6 Hemoglobin Concent Red Cell 13.0 Distribution Width Platelet Count 248 Mean Platelet Volume 9.8 Immature 0.500 H Granulocytes % Neutrophils % 71.1 Lymphocytes % 21.2 Monocytes % 6.9 Eosinophils % 0.0 Basophils % 0.3 Nucleated Red Blood 0.0 Cells % Immature 0.050 H Granulocytes # Neutrophils # 6.9 Lymphocytes # 2.1 Monocytes # 0.7 Eosinophils # 0.0 Basophils # 0.0 Nucleated Red Blood 0.0 Cells # Sodium Level 142 Potassium Level 4.1 Chloride Level 100 Carbon Dioxide Level 30 Anion Gap 12 # Blood Urea Nitrogen 15 Creatinine 0.51 Est Glomerular > 60 Filtrat Rate mL/min Glucose Level 149 Calcium Level 9.2 Test 08/14/18 08:31 Bedside Glucose 164 Exam/Review of Systems Exam Vitals Vital Signs Date Temp Pulse Resp B/P (MAP) Pulse Ox O2 O2 Flow FiO2 Time Delivery Rate 08/14/18 98.5 72 18 110/67 94 Room Air 08:30 (81) 08/11/18 2.0 13:10 Intake and Output 08/13/18 08/13/18 08/14/18 1515:00 23:00 07:00 IntakeIntake Total 480 ml BalanceBalance 480 ml Exam Constitutional: alert, oriented Respiratory: clear to auscultation Cardiovascular: nl pulse Gastrointestinal: soft, non-tender Musculoskeletal: other (Status post left total knee replacement) Extremities: normal pulses Neurological: nl mental status Results Results 24hrs Laboratory Tests Test 08/13/18 12:37 08/13/18 17:43 08/13/18 20:09 08/14/18 04:32 Bedside Glucose 117 174 177 White Blood Count 9.7 Red Blood Count 4.02 L Hemoglobin 12.3 Hematocrit 36.6 L Mean Corpuscular 91.0 Volume Mean Corpuscular 30.6 Hemoglobin Mean Corpuscular 33.6 Hemoglobin Concent Red Cell 13.0 Distribution Width Platelet Count 248 Mean Platelet Volume 9.8 Immature 0.500 H Granulocytes % Neutrophils % 71.1 Lymphocytes % 21.2 Monocytes % 6.9 Eosinophils % 0.0 Basophils % 0.3 Nucleated Red Blood 0.0 Cells % Immature 0.050 H Granulocytes # Neutrophils # 6.9 Lymphocytes # 2.1 Monocytes # 0.7 Eosinophils # 0.0 Basophils # 0.0 Nucleated Red Blood 0.0 Cells # Sodium Level 142 Potassium Level 4.1 Chloride Level 100 Carbon Dioxide Level 30 Anion Gap 12 # Blood Urea Nitrogen 15 Creatinine 0.51 Est Glomerular > 60 Filtrat Rate mL/min Glucose Level 149 Calcium Level 9.2 Test 08/14/18 08:31 Bedside Glucose 164 Medications Medication Current Medications Sodium Chloride 1,000 ml @ 80 mls/hr [id number] IV Last administered on 08/12/18at 03:30; Admin Dose 80 MLS/HR; Start 08/11/18 at 10:50 Zolpidem Tartrate (Ambien) 5 mg HS PRN PO .INSOMNIA; Start 08/11/18 at 11:00 Ondansetron HCl (Zofran Inj) 4 mg Q4H PRN IV NAUSEA/VOMITING; Start 08/12/18 at 11:00 Pantoprazole (Protonix Tab) 40 mg DAILY@06 PO Last administered on 08/14/18 05:38; Admin Dose 40 MG; Start 08/13/18 at 06:00 Docusate Sodium (Colace) 200 mg BID PO Last administered on 08/14/18 08:49; Admin Dose 200 MG; Start 08/12/18 at 09:00; Stop 08/15/18 at 08:59 Simethicone (Mylicon) 80 mg TID PRN PO .GAS; Start 08/11/18 at 11:00 Senna/Docusate Sodium (Senokot-S) 2 tab BID PRN PO .CONSTIPATION; Start 08/11/18 at 11:00 Magnesium Hydroxide (Milk Of Mag) 30 ml HS PRN PO .CONSTIPATION; Start 08/11/18 at 11:00 Bisacodyl (Dulcolax Supp) 10 mg DAILY PRN [place] .CONSTIPATION; Start 08/11/18 at 11:00 Sodium Biphosphate/ Sodium Phosphate (Fleet Enema) 133 ml DAILY PRN [place] .CONSTIPATION; Start 08/11/18 at 11:00 Diphenhydramine HCl (Benadryl) 25 mg Q4H PRN IV .ITCHING; Start 08/11/18 at 11:00 Naloxone HCl (Narcan) 0.2 mg Q2M PRN IV .RESP RATE; Start 08/11/18 at 11:00 Enoxaparin Sodium (Lovenox) 30 mg Q12 SC Last administered on 08/14/18 08:50; Admin Dose 30 MG; Start 08/12/18 at 09:00 Acetaminophen/ Hydrocodone Bitart ([place] (10/325)) 1 tab Q4H PRN PO MODERATE PAIN LEVEL 4-6 Last administered on 08/14/18 09:26; Admin Dose 1 TAB; Start 08/11/18 at 11:00 Acetaminophen/ Hydrocodone Bitart ([place] (10/325)) 2 tab Q4H PRN PO PAIN LEVEL 6-10 Last administered on 08/14/18 05:38; Admin Dose 2 TAB; Start 08/11/18 at 11:00 Morphine Sulfate (morphine) 2 mg Q4H PRN IV SEVERE PAIN LEVEL 7-10 Last administered on 08/13/18 05:34; Admin Dose 2 MG; Start 08/11/18 at 11:00 Clozapine (Clozaril) 600 mg QHS PO ; Start 08/11/18 at 21:00 Escitalopram Oxalate (Lexapro) 20 mg DAILY PO Last administered on 08/14/18 08:49; Admin Dose 20 MG; Start 08/12/18 at 09:00 Losartan Potassium (Cozaar) 50 mg DAILY PO Last administered on 08/14/18 08:49; Admin Dose 50 MG; Start 08/12/18 at 09:00 Metformin HCl (Glucophage) 1,000 mg WITH BREAKFAST DINNE PO Last administered on 08/14/18 08:47; Admin Dose 1,000 MG; Start 08/11/18 at 17:55 Diagnostic Test (Pha) (Accu-Chek) 1 ea AC MEALS AND BEDTIME XX Last administered on 08/14/18 08:43; Admin Dose 1 EA; Start 08/11/18 at 17:25 Diagnostic Test (Pha) (Accu-Chek) 1 ea 02 XX ; Start 08/12/18 at 02:00 Insulin Glargine (Lantus) 20 units DAILY@2000 SC Last administered on 08/13/18 20:13; Admin Dose 20 UNITS; Start 08/11/18 at 20:00 Insulin Aspart (Novolog Insulin Pen) 7 unit WITH MEALS SC Last administered on 08/14/18 08:48; Admin Dose 7 UNIT; Start 08/11/18 at 17:55 Insulin Aspart (Novolog Insulin Pen) NOVOLOG *MILD* ALGORITHM WITH MEALS BEDTIME SC Last administered on 08/14/18 08:48; Admin Dose 1 UNIT; Start 08/11/18 at 17:55 TOY ESTRADA Aug 14, 2018 12:03
--- NOTE | 2018-08-14 12:10 | PN ---
Date/Time of Note Date/Time of Note DATE: 08/14/18 TIME: 12:08 Assessment/Plan Lines/Catheters IV Catheter Type (from Nrsg): Saline Lock Sin in Place (from Nrsg): No Assessment/Plan Assessment/Plan Doing well Recommend continue OOB with PT, CPM Ok to discharge to home with DME's Xarelto or Eliquis x 12 days F/u my office 2 weeks Subjective 24 Hr Interval Summary Complaining of pain. Tolerating CPM Exam/Review of Systems Vital Signs Vitals Vital Signs Date Temp Pulse Resp B/P (MAP) Pulse Ox O2 O2 Flow FiO2 Time Delivery Rate 08/14/18 98.5 72 18 110/67 94 Room Air 08:30 (81) 08/11/18 2.0 13:10 Intake and Output 08/13/18 08/13/18 08/14/18 1515:00 23:00 07:00 IntakeIntake Total 480 ml BalanceBalance 480 ml Exam Free Text/Dictation Left Knee Inc c/d/i No erythema Calf soft and non tender Intact motor and sensory function in foot Results Result Diagram: 08/14/18 0432 08/14/18 0432 LACEY TUCKER MD Aug 14, 2018 12:10
[2018-08-14 15:03] VITALS: BP 109/55; PULSE 78; RESP 18
[2018-08-14 19:25] VITALS: BP 134/60; PULSE 80; RESP 16
[2018-08-14] MEDS: INSULIN GLARGINE [LANTus] (100 UNITS/ML) SYG SC SCH (20:29)
[2018-08-14] MEDS: CLOZAPINE 100 MG TABLET PO SCH (20:31)
[2018-08-15] MEDS: HYDROCODONE/APAP (10/325) TAB PO PRN ×4 (01:10→18:08)
[2018-08-15 01:39] VITALS: BP 120/65; PULSE 77; RESP 16
[2018-08-15] MEDS: PANTOPRAZOLE (EC) 40 MG TAB PO SCH (06:33)
[2018-08-15] MEDS: ACCU-CHEK XX SCH ×3 (07:20→18:00)
[2018-08-15 07:56] VITALS: BP 114/64; PULSE 75; RESP 18
[2018-08-15] MEDS: LOSARTAN 50 MG TAB PO SCH (09:09)
[2018-08-15] MEDS: metFORMIN 500 MG TAB PO SCH ×2 (09:09→18:05)
[2018-08-15] MEDS: ESCITALOPRAM 10 MG TAB PO SCH (09:10)
[2018-08-15] MEDS: ENOXAPARIN 30 MG/0.3 ML SYG SC SCH (09:15)
[2018-08-15] MEDS: INSULIN ASPART [NOVOLOG] 3 ML PEN SC SCH ×6 (09:15→18:04)
[2018-08-15 14:30] VITALS: BP 120/59; PULSE 76; RESP 18
== END 2018-08-15 18:50 | DRG 470 ==
LOC: REC 06:15 → MS1 13:33
PROVIDERS: ADMIT Specialist; ATTEND Specialist
PROC: 0SRD0J9 Replacement of Left Knee Joint with Synthetic Substitute, Cemented, Open Approach (ICD-10-PCS; principal; 2018-08-11 08:00)
DX: M17.12 Unilateral primary osteoarthritis, left knee (principal); I10 Essential (primary) hypertension; E11.8 Type 2 diabetes mellitus with unspecified complications; E66.01 Morbid (severe) obesity due to excess calories; Z68.34 Body mass index [BMI] 34.0-34.9, adult; F20.9 Schizophrenia, unspecified; E78.5 Hyperlipidemia, unspecified; F17.200 Nicotine dependence, unspecified, uncomplicated; Z79.84 Long term (current) use of oral hypoglycemic drugs
CPT/HCPCS: 73560; 80048; 82962; 83036; 85025; 86850; 86900; 86901; 87086; 88304; 88311; 97110; 97116; 97161; 97530; C1713; C1776; J0171; J0690; J1100; J1170; J1650; J1815; J2250; J2270; J2370; J2405; J2710; J3010; J7030